=== PATIENT | male | born 1980 | race Caucasian/White ===

== ENCOUNTER 2023-12-20 07:23 | Outpatient (CLI) | payer MEDICAID ==
[~2023-12-20] VITALS: Ht 167.6 cm; Wt 68.0 kg
[2023-12-20] MEDS: albuterol 2.5 MG/3 ML nebule NEB PRN (07:51)
[2023-12-20 07:52] VITALS: PULSE 80; RESP 16; O2SAT 98
== END 2023-12-20 23:59 | disposition home or self-care (01) ==
LOC: RT 07:23
PROVIDERS: ATTEND Physician Assistant
DX: J45.40 Moderate persistent asthma, uncomplicated (principal)
CPT/HCPCS: 94060; 94760

== ENCOUNTER 2025-04-16 14:48 | Emergency (ER) | payer MEDICAID ==
[~2025-04-16] VITALS: Ht 167.6 cm; Wt 70.3 kg
[2025-04-16 16:00] LABS: MEAN PLATELET VOLUME 7.2 FL (7.4-10.4); RED CELL DISTRIBUTION WIDTH 13.4 % (11.5-14.5)
[2025-04-16 16:14] LABS: CREATININE 1.23 MG/DL (0.60-1.10); TOTAL CARBON DIOXIDE 27.6 MMOL/L (24-32); eCRCL 68 ML/MIN; eGFR 63 ML/MIN
[2025-04-16] MEDS ORDERED: iohexol 300mg/ml 100ml inj. ONE (17:48)
[2025-04-16] MEDS: mag hydrox/Alum hydrox/simeth 30ml oral suspension PO STA (17:59)
[2025-04-16] MEDS: LIDOcaine 2% Viscous 15ml cup MM STA (17:59)
[2025-04-16 18:13] LABS: LEUKOCYTE ESTERASE ,URINE NEGATIVE (Neg); NITRITES, URINE NEGATIVE (Neg); OCCULT BLOOD,URINE NEGATIVE (Neg)
[2025-04-16 18:30] LABS: UA COLLECTION TYPE CLN CATCH MIDSTREAM
[2025-04-16 18:34] LABS: MUCUS STRANDS NONE SEEN /LPF (Neg); SQUAMOUS EPITHELIAL CELL,UR NONE SEEN /LPF (FEW)
--- NOTE | 2025-04-16 18:34 | RADIOLOGY REPORT ---
Indication: RUQ and epigastric abd pain Technique: CT axial images of the abdomen and pelvis are obtained with intravenous contrast. Coronal and sagittal reformats were obtained. Radiation Dose Information: CTDI volume is 7.3 mGy. 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 Bilateral atelectasis. Coronary artery calcification disease. Adrenal glands, spleen, pancreas unremarkable. Hepatomegaly. No CT evidence for cholelithiasis. Kidneys demonstrate no hydronephrosis. Stomach is partially distended. Small bowel loops are normal in caliber. Colonic diverticular disease. There is bowel wall thickening with extends surrounding stranding edema of the hepatic flexure/ proximal transverse colon. Adjacent lymph nodes up to 1 cm. Normal appendix. Abdominal aorta normal in caliber. Bladder is nondistended. No free pelvic fluid. No inguinal lymphad enopathy. No aggressive osseous process. Mild thoracolumbar degenerative disc disease IMPRESSION: Diverticulitis of the hepatic flexure/ proximal transverse colon. Recommend colonoscopy once acute symptoms resolve to exclude any type of underlying colonic lesion/ne oplasm in the hepatic flexure/ proximal transverse colon. Right diaphragmatic hernia containing mesenteric fat. Other findings as described.
[2025-04-16] MEDS ORDERED: ALB0.5UD IH (18:45)
[2025-04-16] MEDS ORDERED: ROSU40TA89 PO (18:45)
[2025-04-16] MEDS ORDERED: EVOL140S2 SUBCUT (18:45)
[2025-04-16] MEDS ORDERED: EZET10TA6 PO (18:45)
[2025-04-16] MEDS ORDERED: MONT4GRA14 PO (18:45)
[2025-04-16] MEDS ORDERED: FLUT1BLS4 INH (18:45)
[2025-04-16] MEDS ORDERED: METR-159 PO (19:01)
--- NOTE | 2025-04-16 19:01 | Physician Documentation ---
History of Present Illness Chief Complaint: Abdominal Pain Stated Complaint: GALL BLADDER PAIN Time Seen by MD: 17:12 Mode of Arrival: POV HPI Patient is seen today with complaints of right upper quadrant/epigastric abdominal pain and discomfort that started few days ago. Patient states he has not really eaten much in the last few days and states he has history of diverticulitis. Patient has been feeling little feverish and chills off and on last couple of days. He denies any diarrhea or nausea or vomiting or chest pain or shortness of breath. Patient has no other concern or complaint at this time. Medication Reconciliation Allergies: Coded Allergies: No Known Allergies (Unverified , 04/16/25) Scheduled Evolocumab (Repatha Syringe), 1 ML SUBCUT Q2W, (Reported) Ezetimibe (Zetia), 1 TAB PO DAILY, (Reported) Fluticasone/Umeclidin/Vilanter (Trelegy Ellipta 100-62.5-25), 1 PUFFS INH DAILY, (Reported) Metronidazole* (Flagyl*), 1 TAB PO Q8H Montelukast Sodium (Singulair), 1 PKT PO DAILY, (Reported) Rosuvastatin Calcium (Rosuvastatin Calcium), 1 TAB PO DAILY, (Reported) Scheduled PRN Albuterol Sulfate Nebs* (Proventil Nebs*), 2.5 MG IH Q4H PRN for SOB or wheezing, (Reported) Review of Systems Constitutional: Denies: chills, fever, weakness Eyes: Denies: pain, blurred vision ENT: Denies: ear pain, nose pain, throat pain, mouth pain Respiratory: Denies: cough, shortness of breath Cardiovascular: Denies: chest pain, palpitations Gastrointestinal: Denies: abdominal pain, nausea, vomiting Genitourinary: Denies: burning, dysuria Male Genitalia: Denies: penile discharge, testicular pain Neurological: Denies: headache, dizziness Musculoskeletal: Denies: pain, swelling Integumentary: Denies: rash, lesions Allergic/Immunologic: Denies: hives, itching Hematologic/Lymphatic: Denies: no symptoms reported Psychiatric: Denies: depression, anxiety Physical Exam Vital Signs: Temperature: 98.7, Source: Oral, Heart Rate: 75, Respiratory Rate: 12, BP: 132/88, Pulse Oximetry: 98, Weight: 70.350 Oxygen Flow Rate: 0 Physical Exam General: Awake and Alert, no acute distress. HEENT: Conjunctiva pink, Sclera clear, Mucus Membranes moist. Neck: Supple without masses and tenderness. Resp: Unlabored. Lungs clear to auscultation bilaterally. Heart: Regular Rate and rhythm, normal S1 and S2 without murmur, rub or gallop. Abdomen: Patient on exam does have significant tenderness to palpation in the right upper quadrant and epigastric areas without rebound tenderness and with mild guarding. Patient's abdomen is nondistended and soft with normoactive bowel sounds in all four quadrants. Extremities: No cyanosis,clubbing or edema. Skin: Warm and Dry. Progress Results/Orders Results/Orders Orders - MARYJO SARKAR PAC Saline Lock (04/16/25 ) Ct Abdomen Pelvis (04/16/25 18:12) Completed Orders - MARYJO SARKAR PAC Procalcitonin (04/16/25 17:11) Lacticsepsis (04/16/25 17:11) Ct Abdomen Pelvis (04/16/25 18:12) Lidocaine 2% Viscous (Xylocaine 2% Visco (04/16/25 17:33) Mag & Alum Hydrox/Simeth Susp (Maalox Or (04/16/25 17:33) Pantoprazole 40mg Iv (Protonix 40mg Iv) (04/16/25 17:33) Iohexol 300mg/Ml 100ml Inj. (Omnipaque-3 (04/16/25 17:48) Medications Received in ER Medications (Trade) Dose Ordered Sig/Dionne Route PRN Reason Start Time Stop Time Status Last Admin Dose Admin (Xylocaine 2% Viscous 15mL cup) 15 ml ONCE STAT MM 04/16/25 17:33 04/16/25 17:37 DC 04/16/25 17:59 15 ML (Maalox oral suspension) 30 ml ONCE STAT PO 04/16/25 17:33 04/16/25 17:37 DC 04/16/25 17:59 30 ML (Protonix 40mg IV) 40 mg ONCE STAT IV 04/16/25 17:33 04/16/25 17:37 DC 04/16/25 17:59 40 MG Vital Signs 04/16/25 04/16/25 04/16/25 04/16/25 14:58 18:10 18:41 18:46 Temp 99.3 98.7 Pulse 77 75 Resp 18 16 17 12 B/P (MAP) 153/101 132/88 (103) Pulse Ox 95 98 O2 Flow Rate 0 Laboratory Tests Test 04/16/25 15:33 04/16/25 18:05 White Blood Count 9.2 Red Blood Count 5.24 Hemoglobin 15.1 Hematocrit 44.4 Mean Corpuscular Volume 84.8 Mean Corpuscular Hemoglobin 28.9 Mean Corpuscular Hemoglobin Concent 34.1 Red Cell Distribution Width 13.4 Platelet Count 348 Mean Platelet Volume 7.2 L Neutrophils (%) (Auto) 75.6 H Lymphocytes (%) (Auto) 12.1 L Monocytes (%) (Auto) 10.6 Eosinophils (%) (Auto) 1.1 Basophils (%) (Auto) 0.6 Neutrophils # (Auto) 7.0 Lymphocytes # (Auto) 1.1 Monocytes # (Auto) 1.0 H Eosinophils # (Auto) 0.1 Basophils # (Auto) 0.1 CBC Comment Sodium Level 138 Potassium Level 4.2 Chloride Level 102 Carbon Dioxide Level 27.6 Anion Gap 8 Blood Urea Nitrogen 14 Creatinine 1.23 H Estimated GFR/1.73 m2 63 BUN/Creatinine Ratio 11.4 Glucose Level 86 Lactic Acid Level 0.6 Calcium Level 9.2 Total Bilirubin 1.2 H Aspartate Amino Transf (AST/SGOT) 70 H Alanine Aminotransferase (ALT/SGPT) 183 H Alkaline Phosphatase 248 H Total Protein 7.4 Albumin 3.2 L Globulin 4.2 Albumin/Globulin Ratio 0.8 L Lipase 29 Procalcitonin 0.10 Chemistry Comments Urine Specimen Description Cln catch midstream Urine Color Dark yellow Urine Clarity Clear Urine pH 6.0 Urine Specific [place] 1.025 Urine Protein Trace Urine Glucose (UA) Negative Urine Ketones 40 H Urine Occult Blood Negative Urine Nitrite Negative Urine Bilirubin Small Urine Urobilinogen 4.0 H Urine Leukocyte Esterase Negative Urine RBC 0-2 Urine WBC 0-4 Urine Squamous Epithelial Cells None seen Urine Bacteria Few Urine Mucus None seen Urine Culture Indicated Not ind Volume Urine Centrifuged 10 ml Urine Comment EKG/XRAY/CT/US/VASC/MRI CT : Impression CAT SCAN Patient: MICHELE BOLES Medical Record: [id number] [facility] : 1980, Age: 44 Sex: Male Location: ER Patient Status: [facility] ER Service Date/Time: 04/16/251811 Ordering Physician: MARYJO SARKAR PAC Exam: CT ABDOMEN PELVIS Indication: RUQ and epigastric abd pain Technique: CT axial images of the abdomen and pelvis are obtained with intravenous contrast. Coronal and sagittal reformats were obtained. Radiation Dose Information: CTDI volume is 7.3 mGy. 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 Bilateral atelectasis. Coronary artery calcification disease. Adrenal glands, spleen, pancreas unremarkable. Hepatomegaly. No CT evidence for cholelithiasis. Kidneys demonstrate no hydronephrosis. Stomach is partially distended. Small bowel loops are normal in caliber. Colonic diverticular disease. There is bowel wall thickening with extends s urrounding stranding edema of the hepatic flexure/ proximal transverse colon. Adjacent lymph nodes up to 1 cm. Normal appendix. Abdominal aorta normal in caliber. Bladder is nondistended. No free pelvic fluid. No inguinal lymphadenopathy. No aggressive osseous process. Mild thoracolumbar degenerative disc disease IMPRESSION: Diverticulitis of the hepatic flexure/ proximal transverse colon. Recommend colonoscopy once acute symptoms resolve to exclude any type of underlying colonic lesion/neoplasm in the hepatic flexure/ proximal transverse colon. Right diaphragmatic hernia containing mesenteric fat. Other findings as described. Electronically Signed by:JOSEPH BEAUCHAMP MD Date & Time: 04/16/251832 Dictated by: JOSEPH BEAUCHAMP MD Dictation date and time: 04/16/251832 Primary Care Provider: NO PRIMARY CARE PROVIDER cc: MARYJO SARKAR PAC ~ Medical Decision Making Findings Patient is seen today with complaints of right upper quadrant/epigastric abdominal pain and discomfort that started few days ago. Patient states he has not really eaten much in the last few days and states he has history of diverticulitis. Patient has been feeling little feverish and chills off and on last couple of days. He denies any diarrhea or nausea or vomiting or chest pain or shortness of breath. Patient has no other concern or complaint at this time. Patient did have CT scan of abdomen which did show diverticulitis of the hepatic flexure of the large colon. Radiologist recommended colonoscopy after resolution of symptoms. Patient's labs also showed elevated liver enzymes and alk phosphatase. Patient will continue to abstain from drinking alcohol. Patient will follow up with primary care in 2-5 days if no better as needed sooner for referral to GI specialist for colonoscopy. Prescription of metronidazole 500 mg one tab 3 times a day for 10 days. First dose of metronidazole given in the ED tonight. Departure Disposition: HOME / SELF CARE / HOMELESS Impression: Primary Impression: Diverticulitis large intestine Qualified Codes: K57.20 - Diverticulitis of large intestine with perforation and abscess without bleeding Condition: Stable Discharge Instructions: Diverticulitis, [id number] Additional Instructions: Patient did have CT scan of abdomen which did show diverticulitis of the hepatic flexure of the large colon. Radiologist recommended colonoscopy after resolution of symptoms. Patient's labs also showed elevated liver enzymes and alk phosphatase. Patient will continue to abstain from drinking alcohol. Patient will follow up with primary care in 2-5 days if no better as needed sooner for referral to GI specialist for colonoscopy. Prescription of metronidazole 500 mg one tab 3 times a day for 10 days. First dose of metronidazole given in the ED tonight. Prescription of sucralfate and pantoprazole also sent to patient's pharmacy. Referrals: NO PRIMARY CARE PROVIDER (PCP) Prescriptions Pantoprazole Sodium (Pantoprazole Sodium) 40 Mg Tablet.dr 1 TAB PO DAILY for 30 Days, #30 TAB 0 Refills Prov: MARYJO SARKAR 04/16/25 Sucralfate (Sucralfate) 1 Gram Tablet 1 TAB PO Q8H for 30 Days, #90 TAB 0 Refills Prov: MARYJO SARKAR 04/16/25 Metronidazole* (Flagyl*) 500 Mg Tablet 1 TAB PO Q8H for 10 Days, #30 TAB Prov: MARYJO SARKAR 04/16/25 Signature Scribe Signature: No scribe Attestation: No scribe MARYJO SARKAR Apr 16, 2025 19:01
[2025-04-16] MEDS ORDERED: PANT40TA54 PO (19:14)
[2025-04-16] MEDS ORDERED: SUCR1TAB PO (19:14)
[2025-04-16 19:28] VITALS: BP 129/99; PULSE 74; RESP 12; TEMP 98.7; O2SAT 97
== END 2025-04-16 19:30 | disposition home or self-care (01) ==
LOC: ER 14:48
DX: K57.20 Diverticulitis of large intestine with perforation and abscess without bleeding (principal); Z79.899 Other long term (current) drug therapy
CPT/HCPCS: 36415; 74177; 80053; 81001; 83605; 83690; 84145; 85025; 96365; 99285; J2470; Q9967